=== PATIENT | female | born 1955 | race Caucasian/White ===

== ENCOUNTER → 2016-12-18 | Outpatient (CLI) | payer OTHER | LOC: CIMAGING 07:25 | DX: R93.8 Abnormal findings on diagnostic imaging of other specified body structures (principal); N85.8 Other specified noninflammatory disorders of uterus | CPT/HCPCS: 76856-PO ==

== ENCOUNTER 2019-01-17 10:53 | Emergency (ER) | payer OTHER | END 2019-01-17 13:36 | disposition home or self-care (01) ==